=== PATIENT | female | born 1975 | race African-American/Black ===

== ENCOUNTER 2018-12-24 09:27 | Emergency (ER) | payer OTHER ==
[~2018-12-24] VITALS: Ht 170.2 cm; Wt 61.2 kg
[~2018-12-24 09:27] MED LIST: BACTRIM DS TAB1 EACH PO; NAPROSYN500 MG PO; NOHOMEMEDICATIONS; PREDNISONE 20 M20 M1 PO
[2018-12-24 10:28] VITALS: BP 133/83
== END 2018-12-24 10:27 | disposition home or self-care (01) ==
LOC: ER 09:27
DX: J02.8 Acute pharyngitis due to other specified organisms (principal); H92.01 Otalgia, right ear; F17.210 Nicotine dependence, cigarettes, uncomplicated; F10.10 Alcohol abuse, uncomplicated; Z88.1 Allergy status to other antibiotic agents

== ENCOUNTER 2018-12-29 14:51 | Emergency (ER) | payer OTHER ==
[~2018-12-29] VITALS: Ht 170.2 cm; Wt 61.2 kg
[2018-12-29 15:05] LABS: URINE BLOOD 2+ (Negative); URINE COLOR YELLOW; URINE GLUCOSE-RANDOM* NEGATIVE (Negative); URINE KETONES 1+ (Negative); URINE LEUKOCYTES NEGATIVE (Negative); URINE NITRITE NEGATIVE (Negative); URINE PROTEIN (DIPSTICK) NEGATIVE (Negative); URINE SPECIFIC GRAVITY >= 1.030 (1.005-1.035); URINE UROBILINOGEN 0.2 E.U./dl (0.2-1.0)
[2018-12-29 15:07] LABS: ICTOTEST (BILI CONFIRMATORY) Negative (Negative); URINE BILIRUBIN NEGATIVE (Negative); URINE CLARITY SL HAZY
[2018-12-29 15:12] LABS: SQUAMOUS 4-10 Moderate /LPF (0-3); URINE RBC 0-2 Rare /HPF (0-2); URINE WBC 0-5 Rare /HPF (0-5)
[2018-12-29 15:13] LABS: CASTS None Seen /LPF (None Seen); CRYSTALS None Seen /LPF (None Seen); MUCUS >6 Heavy strn/LPF (None Seen)
[2018-12-29 15:19] LABS: ABSOLUTE NEUTROPHILS 4.2 thou/uL (1.4-8.2); BASOPHILS 0.8 % (0.0-2.0); EOSINOPHILS 0.7 % (0.0-3.0); HEMATOCRIT 39.1 % (37.0-47.0); HEMOGLOBIN 13.2 gm/dL (12.0-15.0); LYMPHOCYTES 37.9 % (24.0-44.0); MCH 27.9 pg (26.0-34.0); MCHC 33.8 g/dL (28.0-37.0); MCV 82.5 fL (80.0-100.0); MONOCYTES 8.1 % (1.0-8.0); PLATELET COUNT 284 thou/uL (150-400); POLYS 52.5 % (36.0-66.0); RBC 4.74 mil/uL (4.20-5.00); RDW 14.9 % (10.5-14.5); WBC 7.9 thou/uL (4.0-11.0)
[2018-12-29 15:26] LABS: CALCIUM 9.3 mg/dL (8.5-10.1); CREATININE 0.8 mg/dL (0.6-1.0); POTASSIUM 3.7 mmol/L (3.5-5.1)
[2018-12-29 15:33] LABS: ALBUMIN 3.8 g/dL (3.4-5.0); TOTAL PROTEIN 7.6 g/dL (6.4-8.2)
[2018-12-29 17:17] VITALS: BP 128/74
== END 2018-12-29 17:41 | disposition home or self-care (01) ==
LOC: ER 14:51
PROVIDERS: Emergency Medicine
DX: R31.9 Hematuria, unspecified (principal); N93.8 Other specified abnormal uterine and vaginal bleeding; F17.210 Nicotine dependence, cigarettes, uncomplicated; Z88.1 Allergy status to other antibiotic agents